=== PATIENT | female | born 1950 | race Caucasian/White ===

== ENCOUNTER → 2016-08-19 | Outpatient (CLI) | payer BC ==
--- NOTE | 2016-08-19 10:05 | MA ---
Screening Digital Mammogram Clinical Indications: Routine screening. Technique: Standard cephalocaudal and mediolateral oblique projections are obtained. This examinati on was processed by the [employer] computer aided detection system. Comparison: June 2015, June 2014, May 2013 and April 2012 Breast density: C; The breast tissue is heterogeneously dense, which could obscure detection of small masses. There is diffuse prominent ductal pattern. Findings: CAD was reviewed. No suspicious findings are identified. Impression: Negative mammogram. BI-RADS 1. Recommendation: Routine screening is recommended in one year, as long as physical examination is danyel ign in this patient with moderately dense breast parenchyma. Counts Include [facility] will send a result letter to the patient. Negative mammography should not preclude additional workup of a clinically suspicious finding. The patient's information is entered into a reminder system with a target due date for her next mammo gram.
== END ==
LOC: FIMAGING 08:21
DX: Z12.31 Encounter for screening mammogram for malignant neoplasm of breast (principal)
CPT/HCPCS: G0202

== ENCOUNTER → 2018-07-11 | Outpatient (CLI) | payer BC | LOC: FIMAGING 07:55 | PROVIDERS: ATTEND Internal Medicine | DX: Z12.31 Encounter for screening mammogram for malignant neoplasm of breast (principal) ==

== ENCOUNTER 2018-08-19 10:06 | Emergency (ER) | payer BC ==
[2018-08-19] MEDS ORDERED: IPRATROPIUM/ALBUTEROL 3 ML DEYVIAL IH ONE (10:13)
[2018-08-19] MEDS ORDERED: methylPREDNISolone SOD SUCC 125 MG/2 ML VIAL IVP ONE (10:23)
--- NOTE | 2018-08-19 10:25 | EDPHY ---
H & P Stated Complaint: sob since sunday , wheezing Time Seen by Provider: 08/19/18 10:09 HPI/ROS: This patient reports a 2 day history of wheezing or shortness of breath that is increasing in intensity now with moderate to severe shortness of breath and wheeze. She reports that she has had intermittent wheezing and shortness of breath over the past 5 months since having a viral URI in February. She then had a recurrent episode in April and was placed on a Z-john and predniosne by Dr. Ava Crabtree, her primary MD with transient improvement. However, with recurrence of symptoms thereafter in June, she was seen by a information receptionist, Dr. Ramirez as an outpatient in [place]. Dr. Ramirez diagnosed her with reactive airway disease that did not respond to Blanca an [id number] nasal steroid inhaler. She also reports some chest heaviness over the past month intermittently and had some briefly this morning this since resolved. She denies any worsening of his heaviness with exertion and notes no other clear triggers, exacerbating factors for this vague discomfort/heaviness. At the moment the chest pressure has resolved. Constitutional: No high fevers or chills. She does report some fatigue. HEENT: Mild coryza without sinus pain. No sore throat or ear pain. Pulmonary: No hemoptysis. No pleuritic pain. Occasional clear sputum a mostly dry coughing pronounced over the past Few days. Cardiovascular: She reports a history of some heart palpitations that seem well controlled on atenolol. She denies any leg pain or swelling. She does report an episode of paroxysmal nocturnal dyspnea recently. GI: No abdominal pain, nausea or vomiting Endocrine: Positive diaphoresis intermittently Neuro: No complaints new line integumentary: No rash 10 point review of symptoms is performed and otherwise negative with exception of pertinent positives and negatives listed in HPI and ROS Source: Patient Exam Limitations: No limitations - Medical/Surgical History Other PMH: tonsilectomy. tachycardia. high cholesterol - Social History Smoking Status: Unknown if ever smoked Alcohol Use: None Drug Use: None - Physical Exam Exam: General Appearance: Alert, no distress. Eyes: Pupils equal and round no pallor or injection. ENT, Mouth: Mucous membranes moist. Respiratory: Bilateral expiratory wheezing with prolonged expiratory phase Cardiovascular: Borderline tachycardia with no murmur gallop or rub appreciated. No peripheral edema or calf tenderness Gastrointestinal: Abdomen is soft and nontender, no masses, bowel sounds normal. Neurological: GCS 15 Skin: Warm and dry, no rashes. Musculoskeletal: Neck is supple nontender. Extremities are symmetrical, full range of motion. Psychiatric: Mood and affect are normal DIFFERENTIAL DIAGNOSIS: After history and physical exam differential diagnosis was considered for reactive airway disease, URI, influenza, congestive heart failure, pulmonary embolism, pneumonia, pneumothorax, GERD Constitutional: Initial Vital Signs Heart Rate 82 08/19/18 10:14 Respiratory Rate 24 H 08/19/18 10:14 Blood Pressure 166/105 H 08/19/18 10:14 O2 Sat (%) 90 L 08/19/18 10:14 O2 Delivery Mode Room Air Allergies/Adverse Reactions: No Known Allergies Allergy (Unverified 08/19/18 10:14) Home Medications: Medication Instructions Recorded Albuterol Hfa Anes Only [Proair 2 puffs IH Q4 PRN #1 mdi 08/19/18 Hfa Icu (*)] Atenolol 08/19/18 Atorvastatin Calcium 08/19/18 Azithromycin [Zithromax] 250 mg PO DAILY #6 tab 08/19/18 Guaifenesin/Codeine Phosphate 5 - 10 ml PO HS PRN #120 ml 08/19/18 [Guaifenesin-Codeine Liquid] predniSONE 60 mg PO DAILY #15 tab 08/19/18 Medical Decision Making - Diagnostics EKG Interpretation: 12 lead EKG performed shortly after arrival at 10:29 a.m. Indication dyspnea rule out cardiac ischemia Sinus rhythm at 87 Intervals: Normal throughout [place]: Normal throughout ST segments: Normal throughout Overall assessment normal sinus rhythm, possible left atrial enlargement based on P wave morphology Imaging Results: Imaging Impressions Chest X-Ray 08/19/18 11:13 Impression: COPD/mild perihilar bronchitis, without a focal infiltrate. Two view chest x-ray: Bronchial disease without focal infiltrate or other abnormalities by my interpretation Imaging: I viewed and interpreted images myself ED Course/Re-evaluation: IV, monitor, DuoNeb, Solu-Medrol 125 IV with mild improvement in terms of severity of dyspnea after DuoNeb. Her O2 sat also improved from 90% room air to 92% on room air thereafter. Repeat albuterol neb x2 with improvement in her subjective dyspnea. Her tachypnea resolved. Her O2 sat improved to 92% room air. Her wheezing diminished on exam and her peak flow increased from initial of 250 to a peak flow 280 after nebs. Studies: CBC is normal with exception of differential showing increased eosinophils on monocytes, basic metabolic panel is normal, rapid influenza is negative, troponin is normal and D-dimer is normal Discussion: Patient presents with dry cough and wheeze with nasal congestion consistent with URI complicated by RAD exacerbation. I counseled patient regarding this. With otherwise benign workup we ruled out pneumothorax, effectively ruled out PE, pneumonia acute cardiac ischemia or other concerning findings. However, patient understands need to return to the emergency department should she develop worsening symptoms despite plan of prednisone, Zithromax, albuterol and follow up with primary care physician. - Data Points Laboratory Results: 08/19/18 08/19/18 08/19/18 10:48 10:47 10:37 POC Sodium 141 mEq/L mEq/L (135-145) POC Potassium 3.8 mEq/L mEq/L (3.3-5.0) POC Chloride 104.0 mEq/L mEq/L (97-110) POC Total CO2 24 mEq/L mEq/L (22-31) POC BUN 14 mg/dL mg/dL (7-23) POC Creatinine 0.6 mg/dL mg/dL (0.6-1.0) POC Glucose 108 mg/dL H mg/dL (70-100) POC Calcium 10.0 mg/dL mg/dL (8.5-10.4) POC Troponin I 0.02 ng/mL ng/mL (0.00-0.08) NT-Pro-B Natriuret Pep 86 pg/mL pg/mL (0-125) Medications Given: Discontinued Medications Albuterol (Proventil Neb) 3 ml IH EDNOW ONE Stop: 08/19/18 10:50 Last Admin: 08/19/18 10:59 Dose: 3 ml Albuterol (Proventil Neb) 3 ml IH EDNOW ONE Stop: 08/19/18 11:14 Last Admin: 08/19/18 11:38 Dose: 3 ml Albuterol/Ipratropium (Duoneb) 3 ml IH EDNOW ONE Stop: 08/19/18 10:14 Last Admin: 08/19/18 10:19 Dose: 3 ml Methylprednisolone Sodium Succinate (Solu-Medrol) 125 mg IVP EDNOW ONE Stop: 08/19/18 10:24 Last Admin: 08/19/18 10:40 Dose: 125 mg Point of Care Test Results: CBC CBC Collection Date 08/19/18 CBC Collection Time 10:37 WBC 9.96 RBC 5.00 HGB 14.6 HCT 43.0 PLT 171 Neut # 5.43 Neut 54.6 LYMPH # 2.85 LYMPH 28.6 MCV 86.0 Chemistry 08/19/18 08/19/18 10:48 10:47 POC Sodium 141 mEq/L mEq/L (135-145) POC Potassium 3.8 mEq/L mEq/L (3.3-5.0) POC Chloride 104.0 mEq/L mEq/L (97-110) POC Total CO2 24 mEq/L mEq/L (22-31) POC BUN 14 mg/dL mg/dL (7-23) POC Creatinine 0.6 mg/dL mg/dL (0.6-1.0) POC Glucose 108 mg/dL H mg/dL (70-100) POC Calcium 10.0 mg/dL mg/dL (8.5-10.4) POC Troponin I 0.02 ng/mL ng/mL (0.00-0.08) D-Dimer D-Dimer Collection Date 08/19/18 D-Dimer Collection Time 10:37 D-Dimer (ng/ml) <100 Influenza PCR Flu Nasal Swab Collection Date 08/19/18 Flu Nasal Swab Collection Time 11:06 Influenza A Result Not Detected Influenza B Result Not Detected Departure - Departure Disposition: Home, Routine, Self-Care Clinical Impression: Acute bronchitis Qualifiers: Bronchitis organism: unspecified organism Qualified Code(s): J20.9 - Acute bronchitis, unspecified Exacerbation of RAD (reactive airway disease) Qualifiers: Asthma severity: moderate Asthma persistence: persistent Qualified Code(s): J45.41 - Moderate persistent asthma with (acute) exacerbation Condition: Good Instructions: Acute Bronchitis (ED), Reactive Airways Disease (ED) Additional Instructions: Diagnoses: Acute bronchitis 2. Reactive airway exacerbation Plan: Humidifier Zithromax antibiotic as prescribed Albuterol inhaler with spacer for cough, wheeze or shortness of breath Prednisone as prescribed Tessalon Perles for cough prevents sleep Follow up with primary care physician this week for recheck in 2-3 days. Return emergency department if you develop worsening symptoms despite treatment plan. Referrals: Yajaira Grey MD [Primary Care Provider] - As per Instructions Prescriptions: Albuterol Hfa Anes Only [Proair Hfa Icu (*)] 2 puffs IH Q4 PRN #1 mdi PRN Reason: Wheezing Azithromycin [Zithromax] 250 mg PO DAILY #6 tab Guaifenesin/Codeine Phosphate [Guaifenesin-Codeine Liquid] 5 - 10 ml PO HS PRN # 120 ml PRN Reason: Cough, predniSONE 60 mg PO DAILY #15 tab
[2018-08-19] MEDS ORDERED: ALBUTEROL 3 ML DEYVIAL IH ONE ×2 (10:49→11:13)
[2018-08-19 13:19] VITALS: BP 126/72
== END 2018-08-19 13:15 | disposition home or self-care (01) ==
LOC: CED 10:06
DX: J44.0 Chronic obstructive pulmonary disease with (acute) lower respiratory infection (principal); J20.9 Acute bronchitis, unspecified
CPT/HCPCS: 71046-PO; 80048-ER; 84484-ER; 96374-ER; J2930; J7613

== ENCOUNTER → 2018-11-14 | Outpatient (CLI) | payer BC | LOC: FIMAGING 10:46 | PROVIDERS: ATTEND Internal Medicine | DX: M85.89 Other specified disorders of bone density and structure, multiple sites (principal) ==